=== PATIENT | female | born 1940 | race Caucasian/White ===

== ENCOUNTER 2021-11-17 07:48 | Emergency (ER) | payer MEDICARE ==
[~2021-11-17] VITALS: Ht 162.6 cm; Wt 68.0 kg
[2021-11-17 07:55] VITALS: BP_SYST 143
[2021-11-17] MEDS ORDERED: traMADol HCL HCL 50 MG TABLET (ULTRAM) PO ONE (08:00)
--- NOTE | 2021-11-17 08:00 | NUR ---
MD DR ROBERTS AT BEDSIDE
--- NOTE | 2021-11-17 08:01 | NUR ---
PT BIBA AWAKE AND ALERT, AOX4. PERRRLA, NO SOB OR DISTRESS. PT HAD A FALL AT HOME, NO TRAUMA, AND PT DENIES KO. PT WAS ON FLOOR FOR A FEW HOURS BEFORE BEING ABLE TO CALL 911. PT LIVES ALONE. PT C/O OF PAIN TO LOWER BACK, RADIATING TO LOWER BACK. PT DENIES PAIN TO HIPS. VSS.
--- NOTE | 2021-11-17 08:02 | NUR ---
Patient to ER bed 2 to gown for evaluation. Side rails up. Report given to ADEN CHUNG
--- NOTE | 2021-11-17 08:59 | NUR ---
PT TAKEN TO RADIOLOGY FOR BACK XRAY
[2021-11-17 09:38] LABS: BASOPHILS % (AUTO) 0.3 % (0.0-2.0); HEMATOCRIT 38.6 % (36-48); HEMOGLOBIN 13.1 g/dL (12.0-16.0); LYMPHOCYTES # (AUTO) 1.4 K/uL (1.0-5.5); LYMPHOCYTES % (AUTO) 11.1 % (20.5-51.5); MEAN CORPUSCULAR HEMOGLOBIN 33 pg (27-31); MEAN CORPUSCULAR HGB CONC 34 % (32-36); MEAN CORPUSCULAR VOLUME 97 fL (79.0-98.0); MONOCYTES # (AUTO) 1.3 K/uL (0.0-1.0); MONOCYTES % (AUTO) 10.6 % (1.7-9.3); NEUTROPHILS # (AUTO) 9.6 K/uL (1.8-7.7); PLATELET COUNT (AUTO) 333 K/uL (130-430); RED BLOOD CELL COUNT(AUTO) 3.99 MIL/uL (4.2-6.2); RED CELL DISTRIBUTION WIDTH 14.4 % (9.0-15.0); WHITE BLOOD COUNT (AUTO) 12.4 K/uL (4.8-10.8)
[2021-11-17 09:44] LABS: ANION GAP 9 (5-15); CALCIUM 8.7 mg/dL (8.4-11.0); CHLORIDE 101 mmol/L (98-107); GLUCOSE 123 mg/dL (70-99); POTASSIUM 3.2 mmol/L (3.5-5.1); UREA NITROGEN, BLOOD 15 mg/dL (8-21)
[2021-11-17 09:54] LABS: ALANINE AMINOTRANSFERASE 11 U/L (12-78); ALBUMIN 2.6 g/dL (3.4-4.8); ASPARTATE AMINOTRANSFERASE 22 U/L (10-37); TOTAL BILIRUBIN 0.3 mg/dL (0.0-1.0)
--- NOTE | 2021-11-17 09:56 | NUR ---
LAB CALLED W/ R RESULTS FOR ELEVATED TROPONIN OF 129, DR ROBERTS WAS NOTIFIED.
--- NOTE | 2021-11-17 10:17 | NUR ---
PER [place] [facility], Priscilla GARCIA WILL CALL BACK TO SPEAK TO DR. ROBERTS REGARDING PT STATUS SPOKE TO CAROLYN
--- NOTE | 2021-11-17 10:26 | NUR ---
DR. MCELROY, [facility] DOC, CALLED BACK TO SPEAK TO DR. ROBERTS REGARDING PT STATUS.
[2021-11-17] MEDS ORDERED: ASPIRIN 81 MG TAB.CHEW PO ONE (10:30)
[2021-11-17] MEDS ORDERED: POTASSIUM CHLORIDE 20 MEQ TAB.PRT.SR PO ONE (10:45)
[2021-11-17 11:05] LABS: CKMB RELATIVE INDEX 0.8 (0.0-2.9); CREATINE KINASE MB 2.4 ng/mL (0-3.6)
--- NOTE | 2021-11-17 11:40 | NUR ---
LAB CALLED WITH 2ND TROPONIN LEVELS OF 179, MD DR ROBERTS NOTIFIED.
--- NOTE | 2021-11-17 11:57 | NUR ---
DR. MCELROY, [facility], CALLED BACK TO SPEAK TO DR. ROBERTS REGARDING LAB REPORT UPDATE.
--- NOTE | 2021-11-17 12:11 | NUR ---
PT IN BED W DAUGHTER AT BEDSIDE. AWAKE AND ALERT. NO DISTRESS OR SOB.
--- NOTE | 2021-11-17 12:38 | NUR ---
TRANSFER INFO [facility] Prisc[facility], DR. [phone] ALS ETA [id number] SPOKE TO STEVE [facility] SKILLED LABOR
[2021-11-17 14:02] VITALS: BP_SYST 151
--- NOTE | 2021-11-17 14:04 | NUR ---
Patient to be transferred to [facility]. Is being transferred due to higher level of care. Receiving facility has accepting physician and available space. ER physician has signed transfer form. Patient or responsible constitution party has agreed to transfer and signed form. Patient belongings inventoried and will be sent with patient. Copy of nursing notes, lab reports, EKG, Physicians Orders and X-rays to be sent with patient. Report called to VALERIE at receiving facility. Receiving physician is DR BROWN. Ambulance service has been called for transfer. ETA IS 30 MINUTES
== END 2021-11-17 14:04 | disposition short-term general hospital (02) ==
LOC: SED 07:48
DX: M54.50 Low back pain, unspecified (principal); I24.9 Acute ischemic heart disease, unspecified; I10 Essential (primary) hypertension; K21.9 Gastro-esophageal reflux disease without esophagitis; Z88.8 Allergy status to other drugs, medicaments and biological substances; Z79.899 Other long term (current) drug therapy; Z20.822 Contact with and (suspected) exposure to COVID-19
CPT/HCPCS: 36415; 72100-TC; 80053; 82550; 82553; 83880; 84484; 85025; 99285

== ENCOUNTER 2021-12-18 04:58 | Emergency (ER) | payer MEDICARE ==
[2021-12-18 05:10] VITALS: BP_SYST 142
--- NOTE | 2021-12-18 05:44 | NUR ---
PATIENT BIBA FROM HOME C/O BACK PAIN ASSOCIATED WITH CHRONIC BACK PAIN, PLACED IN BED 3 ON ARMAT[address] AND ROTOR WINDER, AWAITING FOR EDP FOR INITIAL ASSESSMENT, DAUGHTER AT BEDSIDE.
--- NOTE | 2021-12-18 06:05 | NUR ---
EDP AT BEDSIDE FOR INITIAL ASSESSMENT.
[2021-12-18] MEDS ORDERED: ONDANSETRON HCL 4 MG/2 ML VIAL IVP ONE (06:15)
[2021-12-18] MEDS ORDERED: MORPHINE 2 MG/ML INJ. SYRINGE IVP ONE (06:15)
[2021-12-18] MEDS ORDERED: KETOROLAC TROMETHAMINE 15 MG VIAL IVP ONE (06:15)
[2021-12-18 07:49] LABS: ANION GAP 12 (5-15); CHLORIDE 105 mmol/L (98-107); CREATININE 0.75 mg/dL (0.55-1.30); GLUCOSE 90 mg/dL (70-99); UREA NITROGEN, BLOOD 12 mg/dL (8-21)
[2021-12-18 07:50] LABS: PROTHROMBIN TIME 10.5 SECS (9.5-12.5)
[2021-12-18 07:56] LABS: ALANINE AMINOTRANSFERASE 16 U/L (12-78); ALBUMIN 3.2 g/dL (3.4-4.8); ASPARTATE AMINOTRANSFERASE 24 U/L (10-37); TOTAL BILIRUBIN 0.2 mg/dL (0.0-1.0)
--- NOTE | 2021-12-18 08:15 | NUR ---
PATIENT TAKEN TO/FROM CT. DAUGHTER LEFT TO COME BACK.
[2021-12-18] MEDS ORDERED: NACL 0.9% 1,000 ML IV ONE (09:15)
[2021-12-18 09:20] VITALS: BP_SYST 129
--- NOTE | 2021-12-18 09:55 | NUR ---
REPORT GIVEN TO MICHEAL AWAITING FOR TRANSPORT AT [id number]
[2021-12-18 10:16] LABS: BILIRUBIN,URINE NEGATIVE (NEGATIVE); BLOOD, URINE NEGATIVE (NEGATIVE); CLARITY/URINE CLEAR (CLEAR); COLOR,URINE YELLOW (YELLOW); GLUCOSE,URINE NEGATIVE (NEGATIVE); KETONES,URINE 1+ (NEGATIVE); LEUKOCYTE ESTERASE ,URINE TRACE (NEGATIVE); NITRITE, URINE NEGATIVE (NEGATIVE); PROTEIN URINE NEGATIVE (NEGATIVE); UROBILINOGEN,URINE 0.2 (0.2-1.0)
[2021-12-18 11:26] LABS: BACTERIA,URINE RARE /HPF (None Seen); RBC,URINE 0-3 /HPF (0-3)
--- NOTE | 2021-12-18 12:09 | NUR ---
Patient to be transferred to [facility]. Is being transferred due to higher level of care. Receiving facility has accepting physician and available space. ER physician has signed transfer form. Patient or responsible constitution party has agreed to transfer and signed form. Patient belongings inventoried and will be sent with patient. Copy of nursing notes, lab reports, EKG, Physicians Orders and X-rays to be sent with patient. Report called to at receiving facility. Receiving physician is . ambulance service has been called for transfer. ETA is .
[2021-12-18 13:26] LABS: BASOPHILS # (AUTO) 0.1 K/uL (0.0-0.2); BASOPHILS % (AUTO) 0.6 % (0.0-2.0); EOSINOPHILS # (AUTO) 0.1 K/uL (0.0-0.4); EOSINOPHILS % (AUTO) 0.7 % (0.0-4.0); HEMATOCRIT 40.6 % (36-48); HEMOGLOBIN 13.4 g/dL (12.0-16.0); LYMPHOCYTES # (AUTO) 1.7 K/uL (1.0-5.5); MEAN CORPUSCULAR HEMOGLOBIN 32 pg (27-31); MEAN CORPUSCULAR HGB CONC 33 % (32-36); MEAN CORPUSCULAR VOLUME 97 fL (79.0-98.0); MONOCYTES # (AUTO) 1.2 K/uL (0.0-1.0); MONOCYTES % (AUTO) 8.7 % (1.7-9.3); NEUTROPHILS # (AUTO) 10.2 K/uL (1.8-7.7); PLATELET COUNT (AUTO) 345 K/uL (130-430); RED CELL DISTRIBUTION WIDTH 14.5 % (9.0-15.0); WHITE BLOOD COUNT (AUTO) 13.3 K/uL (4.8-10.8)
== END 2021-12-18 12:09 ==
LOC: SED 04:58
DX: M54.16 Radiculopathy, lumbar region (principal); M54.50 Low back pain, unspecified; G89.29 Other chronic pain; R20.2 Paresthesia of skin; Z88.8 Allergy status to other drugs, medicaments and biological substances; Z79.899 Other long term (current) drug therapy; Z20.822 Contact with and (suspected) exposure to COVID-19
CPT/HCPCS: 99285; 96374; 72131; 96375; 96361; 87426; 80053; 85025; 85610; 85730; 87040; 87086; 84484; 36415; 76376; 83605; 81003; 81000; J1885; J2405; J2270; J7030

== ENCOUNTER 2023-12-02 16:00 | Emergency (ER) | payer MEDICARE, OTHER ==
[~2023-12-02] VITALS: Ht 170.2 cm; Wt 86.2 kg
[2023-12-02 16:05] VITALS: BP_SYST 102; PULSE 58; RESP 20; TEMP 98.3; O2SAT 98
[2023-12-02] MEDS ORDERED: CARB-317 PO (17:01)
[2023-12-02] MEDS ORDERED: LOSA-413 PO (17:03)
[2023-12-02] MEDS ORDERED: ARIP20TA4 PO (17:03)
[2023-12-02] MEDS ORDERED: LEVO150T PO (17:03)
[2023-12-02] MEDS ORDERED: CARB200T PO (17:03)
[2023-12-02] MEDS: PANTOPRAZOLE SODIUM 40 MG TAB PO ONE (17:15)
[2023-12-02 17:47] LABS: BILIRUBIN,URINE NEGATIVE (NEGATIVE); BLOOD, URINE NEGATIVE (NEGATIVE); COLOR,URINE YELLOW (YELLOW); GLUCOSE,URINE NEGATIVE (NEGATIVE); KETONES,URINE NEGATIVE (NEGATIVE); LEUKOCYTE ESTERASE ,URINE 2+ (NEGATIVE); NITRITE, URINE NEGATIVE (NEGATIVE); PROTEIN URINE TRACE (NEGATIVE); UROBILINOGEN,URINE 0.2 (0.2-1.0)
[2023-12-02 18:01] LABS: CLARITY/URINE HAZY (CLEAR)
[2023-12-02 18:07] LABS: BASOPHILS % (AUTO) 0.4 % (0.0-2.0); EOSINOPHILS # (AUTO) 0.1 K/uL (0.0-0.4); EOSINOPHILS % (AUTO) 0.9 % (0.0-4.0); HEMATOCRIT 38.2 % (36-48); LYMPHOCYTES # (AUTO) 1.4 K/uL (1.0-5.5); LYMPHOCYTES % (AUTO) 10.8 % (20.5-51.5); MEAN CORPUSCULAR HEMOGLOBIN 34 pg (27-31); MEAN CORPUSCULAR HGB CONC 34 % (32-36); MEAN CORPUSCULAR VOLUME 99 fL (79.0-98.0); MONOCYTES # (AUTO) 0.8 K/uL (0.0-1.0); MONOCYTES % (AUTO) 6.4 % (1.7-9.3); NEUTROPHILS # (AUTO) 10.7 K/uL (1.8-7.7); NEUTROPHILS % (AUTO) 81.5 % (40.0-70.0); PLATELET COUNT (AUTO) 376 K/uL (130-430); RED BLOOD CELL COUNT(AUTO) 3.86 MIL/uL (4.2-6.2); RED CELL DISTRIBUTION WIDTH 14.2 % (9.0-15.0); WHITE BLOOD COUNT (AUTO) 13.1 K/uL (4.8-10.8)
[2023-12-02 18:21] LABS: ALANINE AMINOTRANSFERASE 11 U/L (12-78); ALBUMIN 3.4 g/dL (3.4-4.8); ANION GAP 8 (5-15); ASPARTATE AMINOTRANSFERASE 29 U/L (10-37); CALCIUM 9.4 mg/dL (8.4-11.0); CARBON DIOXIDE 28 mmol/L (23-29); CHLORIDE 103 mmol/L (98-107); CREATININE 1.16 mg/dL (0.55-1.30); GLUCOSE 103 mg/dL (74-106); POTASSIUM 4.5 mmol/L (3.5-5.1); SODIUM SERUM 139 mmol/L (136-145); TOTAL BILIRUBIN 0.3 mg/dL (0.0-1.0); TOTAL PROTEIN, SERUM 7.8 g/dL (6.4-8.3); UREA NITROGEN, BLOOD 18 mg/dL (8-21)
[2023-12-02 18:30] LABS: RBC,URINE 0-3 /HPF (0-3)
[2023-12-02 18:30] LABS: THYROID STIMULATING HORMONE 0.21 uIu/mL (0.36-3.74)
[2023-12-02 18:31] LABS: BACTERIA,URINE MODERATE /HPF (None Seen); MUCUS,URINE None Seen /LPF (None Seen); URINE AMORPHOUS PHOSPHATES 1+ /HPF (None Seen)
[2023-12-02] MEDS ORDERED: LEVO-62 PO (18:54)
[2023-12-02] MEDS ORDERED: OMEP40CA20 PO (18:54)
[2023-12-02] MEDS: cefTRIAXone 1 GM VIAL IM ONE (19:05)
[2023-12-02 19:08] VITALS: BP_SYST 138; PULSE 60; RESP 20; TEMP 98.3; O2SAT 98
== END 2023-12-02 19:02 | disposition home or self-care (01) ==
LOC: SED 16:00
DX: N39.0 Urinary tract infection, site not specified (principal); K21.9 Gastro-esophageal reflux disease without esophagitis; R55 Syncope and collapse; R53.83 Other fatigue; R10.13 Epigastric pain; E03.9 Hypothyroidism, unspecified; F03.90 Unspecified dementia, unspecified severity, without behavioral disturbance, psychotic disturbance, mood disturbance, and anxiety; I10 Essential (primary) hypertension; Z88.8 Allergy status to other drugs, medicaments and biological substances; Z79.899 Other long term (current) drug therapy
CPT/HCPCS: 99284; 80053; 81001; 84439; 84443; 85025; 87086; 84484; 36415; 93005; 96372; J0696; 81000; 81015; 87186